=== PATIENT | male | born 1980 | race Asian ===

== ENCOUNTER 2019-10-15 01:52 | Inpatient (IN) | payer MEDICAID ==
[~2019-10-15] VITALS: Ht 172.7 cm; Wt 70.3 kg
[2019-10-15 02:28] LABS: Basophils # (auto) 0.3 10 ^3/uL (0-0.2); Basophils % (auto) 1.1 % (0.0-2.0); Eosinophils # (auto) 0.1 10 ^3/uL (0-0.8); Eosinophils % (auto) 0.5 % (0.0-7.0); Hematocrit 47.3 % (41.0-53.0); Hemoglobin 16.4 g/dL (13.5-17.5); Lymphocytes % (auto) 4.3 % (10.0-50.0); Mean Corpuscular Hemoglobin 33.1 pg (28.0-32.0); Mean Corpuscular Hgb Conc. 34.6 g/dL (32.0-36.0); Mean Corpuscular Volume 95.7 fL (80.0-100.0); Monocytes # (auto) 1.2 10 ^3/uL (0-1.3); Monocytes % (auto) 4.9 % (0.0-12.0); Neutrophils # (auto) 20.8 10 ^3/uL (1.6-8.6); Neutrophils % (auto) 89.2 % (37.0-80.0); Platelet Count (auto) 395 10^3/uL (140-450); Red Blood Cells 4.95 10^6/uL (4.5-5.90); Red Cell Distribution Width 12.7 % (11.8-14.3); White Blood Cell 23.4 10^3/uL (4.4-10.8)
[2019-10-15 02:42] LABS: Calcium 8.9 mg/dL (8.5-10.1)
[2019-10-15] MEDS ORDERED: SODIUM CHLORIDE 0.9% 1,000 ML IV ONE ×3 (02:45→04:00)
[2019-10-15] MEDS ORDERED: IOHEXOL 300 MG/ML 100ML BOTTLE IJ ONE (02:46)
[2019-10-15 02:51] LABS: BUN/Creatinine Ratio 4.1; Bilirubin, Total 3.3 mg/dL (0.2-1.0); Total Protein 7.4 g/dL (6.4-8.2)
[2019-10-15] MEDS ORDERED: ONDANSETRON HCL 4 MG/2 ML VIAL IV ONE (03:00)
[2019-10-15] MEDS ORDERED: MORPHINE SULFATE 4 MG/ML SYR/VIAL IV ONE (03:00)
[2019-10-15 03:44] LABS: Lactic Acid w/Reflex 2.2 mmol/L (0.4-2.0)
[2019-10-15] MEDS ORDERED: PIPERACILLIN-TAZOB 3.375GM 100 ML IV ONE ×2 (04:00→05:46)
[2019-10-15] MEDS ORDERED: VANCOMYCIN 1GM/250ML 250 ML IV ONE ×2 (04:00→04:25)
[2019-10-15 06:03] LABS: Urine Bacteria NONE SEEN /hpf (None Seen); Urine Blood TRACE /uL (Negative); Urine Specific Gravity 1.028 (1.001-1.035); Urine WBC <1 /hpf (0 - 3)
[2019-10-15] MEDS ORDERED: ACETAMINOPHEN 325 MG TAB PO PRN (06:30)
[2019-10-15] MEDS ORDERED: NITROGLYCERIN 0.4 MG SL TAB SL PRN (06:30)
[2019-10-15] MEDS ORDERED: MORPHINE SULF INJ 2 MG/ML SYRINGE 1ML IV PRN (06:30)
[2019-10-15] MEDS: ONDANSETRON HCL 4 MG/2 ML VIAL IV PRN ×2 (07:32→15:22)
[2019-10-15] MEDS: MORPHINE SULF INJ 2 MG/ML SYRINGE 1ML IV PRN ×2 (07:32→15:22)
--- NOTE | 2019-10-15 09:10 | NUR ---
CAME ON WC FROM ER, RECEIVED -PATIENT ALERT AND ORIENTED X4, NOT IN DISTRESS, CLEAR LS IN BILATERAL UPPER AND LOWER LUNG LOBES, RR=18, SAT=97%, DEEP BREATHING AND COUGHING ENCOURAGED, DEMONSTRATED AND VERBALIZED UNDERSTANDING, DENIED OF BREATH AND CHEST PAIN, HEAR R=86 ON TELE MONITOR, ABDOMEN SOFT WITH ACTIVE BS, LAST BM ON 10/14/19 REPORTED, SKIN INTACT, WARM TO TOUCH, RESTING ON BES, HEAD OF BED ELEVATED, BED ON LOW POSITION, RAILS UP X2, CALL LIGHT ON REACH, VS T=98.6, RR=18, SAT=97%, P=62, CI=946/69, PENDING GI AND SURGICAL CONSULT ORDERED, WILL CONTINUE MONITORING.
[2019-10-15] MEDS: ENOXAPARIN SOD 40 MG/0.4 ML SYRINGE SC SCH (10:19)
[2019-10-15 13:00] VITALS: BP 125/72
[2019-10-15 14:49] LABS: INR 1.06 (0.9-1.15); Partial Thromboplastin Time 26.6 sec (23.0-31.2)
[2019-10-15] MEDS: SODIUM CHLORIDE 0.9% 1,000 ML IV SCH ×3 (15:00→20:00)
[2019-10-15] MEDS: PIPERACILLIN-TAZOB 3.375GM 100 ML IV SCH ×2 (15:22→21:55)
[2019-10-15 17:00] VITALS: BP 121/68
--- NOTE | 2019-10-15 19:49 | NUR ---
NO HOME MEDICATION REPORTED THE PATIENT, NOT IN DISTRESS, RESTING ON BED HEAD OF BED ELEVATED, BED ON LOW POSITION, RAILS UP X2, CALL LIGHT ON REACH, REPORT WAS GIVEN TO THE EDITOR RN.
[2019-10-15 21:54] VITALS: BP 124/70
[2019-10-16] MEDS: SODIUM CHLORIDE 0.9% 1,000 ML IV SCH ×5 (01:00→21:10)
[2019-10-16] MEDS: MORPHINE SULF INJ 2 MG/ML SYRINGE 1ML IV PRN ×3 (03:21→17:39)
[2019-10-16 04:50] VITALS: BP 129/69
[2019-10-16] MEDS: PIPERACILLIN-TAZOB 3.375GM 100 ML IV SCH ×3 (06:17→21:10)
--- NOTE | 2019-10-16 07:55 | NUR ---
RECEIVED -PATIENT ALERT AND ORIENTED X4, NOT IN DISTRESS, CLEAR LS IN BILATERAL UPPER AND LOWER LUNG LOBES, RR=18, SAT=96%, DEEP BREATHING AND COUGHING ENCOURAGED, DEMONSTRATED AND VERBALIZED UNDERSTANDING, DENIED OF BREATH AND CHEST PAIN, HEART R=82, ABDOMEN SOFT WITH ACTIVE BS, KEEP NPO ORDERED, LAST BM 10/11/19 REPORTED, SKIN INTACT, WARM TO TOUCH, RESTING ON BES, HEAD OF BED ELEVATED, BED ON LOW POSITION, RAILS UP X2, CALL LIGHT ON REACH, GI AND SURGICAL CONSULT ORDERED, WILL CONTINUE MONITORING.
[2019-10-16 09:00] VITALS: BP 122/72
[2019-10-16] MEDS: ENOXAPARIN SOD 40 MG/0.4 ML SYRINGE SC SCH (10:57)
[2019-10-16] MEDS: ONDANSETRON HCL 4 MG/2 ML VIAL IV PRN ×2 (10:59→17:39)
[2019-10-16 13:00] VITALS: BP 116/68
[2019-10-16 17:00] VITALS: BP 118/69
--- NOTE | 2019-10-16 19:12 | NUR ---
NOT IN DISTRESS, RESTING ON BED HEAD OF BED ELEVATED, BED ON LOW POSITION, RAILS UP X2, CALL LIGHT ON REACH, REPORT WAS GIVEN TO THE FUR DRY CLEANER RN.
[2019-10-16 21:29] LABS: Basophils # (auto) 0.1 10 ^3/uL (0-0.2); Basophils % (auto) 0.4 % (0.0-2.0); Eosinophils # (auto) 0.1 10 ^3/uL (0-0.8); Eosinophils % (auto) 0.3 % (0.0-7.0); Hematocrit 44.1 % (41.0-53.0); Hemoglobin 14.4 g/dL (13.5-17.5); Lymphocytes # (auto) 1.1 10 ^3/uL (0.4-5.4); Lymphocytes % (auto) 5.8 % (10.0-50.0); Mean Corpuscular Hemoglobin 31.7 pg (28.0-32.0); Mean Corpuscular Hgb Conc. 32.5 g/dL (32.0-36.0); Mean Corpuscular Volume 97.6 fL (80.0-100.0); Monocytes # (auto) 1.2 10 ^3/uL (0-1.3); Monocytes % (auto) 6.6 % (0.0-12.0); Neutrophils # (auto) 15.8 10 ^3/uL (1.6-8.6); Neutrophils % (auto) 86.9 % (37.0-80.0); Platelet Count (auto) 327 10^3/uL (140-450); Red Blood Cells 4.52 10^6/uL (4.5-5.90); Red Cell Distribution Width 12.9 % (11.8-14.3); White Blood Cell 18.1 10^3/uL (4.4-10.8)
[2019-10-16 21:41] LABS: Albumin 3.4 g/dL (3.4-5.0); Calcium 8.1 mg/dL (8.5-10.1); Potassium 3.4 mmol/L (3.5-5.1)
[2019-10-16 21:44] LABS: BUN/Creatinine Ratio 8.2
[2019-10-16 22:00] VITALS: BP 115/65
[2019-10-17] MEDS: MORPHINE SULF INJ 2 MG/ML SYRINGE 1ML IV PRN ×2 (00:44→08:51)
[2019-10-17] MEDS: SODIUM CHLORIDE 0.9% 1,000 ML IV SCH ×2 (02:20→06:18)
[2019-10-17 05:00] VITALS: BP 118/70
[2019-10-17] MEDS: PIPERACILLIN-TAZOB 3.375GM 100 ML IV SCH ×3 (05:40→22:39)
[2019-10-17 06:00] LABS: Basophils # (auto) 0.1 10 ^3/uL (0-0.2); Basophils % (auto) 0.5 % (0.0-2.0); Eosinophils # (auto) 0.2 10 ^3/uL (0-0.8); Hematocrit 40.3 % (41.0-53.0); Hemoglobin 13.4 g/dL (13.5-17.5); Lymphocytes # (auto) 1.4 10 ^3/uL (0.4-5.4); Lymphocytes % (auto) 8.1 % (10.0-50.0); Mean Corpuscular Hemoglobin 32.4 pg (28.0-32.0); Mean Corpuscular Hgb Conc. 33.3 g/dL (32.0-36.0); Mean Corpuscular Volume 97.1 fL (80.0-100.0); Monocytes # (auto) 1.4 10 ^3/uL (0-1.3); Monocytes % (auto) 8.5 % (0.0-12.0); Neutrophils # (auto) 13.7 10 ^3/uL (1.6-8.6); Neutrophils % (auto) 81.9 % (37.0-80.0); Platelet Count (auto) 303 10^3/uL (140-450); Red Blood Cells 4.15 10^6/uL (4.5-5.90); Red Cell Distribution Width 12.7 % (11.8-14.3); White Blood Cell 16.8 10^3/uL (4.4-10.8)
[2019-10-17 06:30] LABS: Potassium 3.5 mmol/L (3.5-5.1)
[2019-10-17 06:39] LABS: Albumin 3.1 g/dL (3.4-5.0); BUN/Creatinine Ratio 8.9; Calcium 8.5 mg/dL (8.5-10.1); Total Protein 6.6 g/dL (6.4-8.2)
[2019-10-17 06:46] LABS: Cholesterol 123 mg/dL (< 200); HDL Cholesterol 41 mg/dL (40-59); LDL Cholesterol 73 mg/dL (< 100); Triglycerides 75 mg/dL (< 150)
[2019-10-17 09:00] VITALS: BP 125/69
[2019-10-17] MEDS: ENOXAPARIN SOD 40 MG/0.4 ML SYRINGE SC SCH (09:01)
--- NOTE | 2019-10-17 12:33 | NUR ---
DR. REICH ROUNDED ON PATIENT. PER MD, SURGERY TOMORROW AND KEEP NPO. NO CLEAR LIQUIDS TO BE GIVEN TODAY.
[2019-10-17 13:00] VITALS: BP 117/66
[2019-10-17] MEDS: D5W/SOD CHL 0.45%/KCL 20MEQ 1,000 ML IV SCH ×2 (14:00→21:05)
[2019-10-17 17:05] VITALS: BP 121/67
--- NOTE | 2019-10-17 19:50 | NUR ---
Opening Shift Note Received report and assumed care of patient. Patient is awake and alert. No signs or symptoms of distress noted. Instructed patient on plan of care and to call for assistance as needed. Educated patient regarding procedure scheduled for the morning. Will continue to monitor.
[2019-10-17 21:32] VITALS: BP 117/64
--- NOTE | 2019-10-17 22:34 | NUR ---
IV removal/insertion 20g IV to the right hand reddened. Discontinued IV with clean technique, catheter tip fully intact. Pressure dressing applied to site. NOTE:Inserted 20g to the Right forearm. Patient tolerated well.
[2019-10-18] MEDS: D5W/SOD CHL 0.45%/KCL 20MEQ 1,000 ML IV SCH ×3 (01:46→22:05)
[2019-10-18 05:00] VITALS: BP 124/77
[2019-10-18] MEDS: PIPERACILLIN-TAZOB 3.375GM 100 ML IV SCH ×3 (05:16→22:24)
[2019-10-18 06:40] LABS: Basophils # (auto) 0.1 10 ^3/uL (0-0.2); Basophils % (auto) 0.6 % (0.0-2.0); Eosinophils # (auto) 0.2 10 ^3/uL (0-0.8); Eosinophils % (auto) 1.6 % (0.0-7.0); Hematocrit 42.4 % (41.0-53.0); Hemoglobin 14.1 g/dL (13.5-17.5); Lymphocytes # (auto) 1.5 10 ^3/uL (0.4-5.4); Lymphocytes % (auto) 11.6 % (10.0-50.0); Mean Corpuscular Hemoglobin 32.4 pg (28.0-32.0); Mean Corpuscular Hgb Conc. 33.1 g/dL (32.0-36.0); Mean Corpuscular Volume 97.8 fL (80.0-100.0); Monocytes % (auto) 8.2 % (0.0-12.0); Neutrophils # (auto) 9.9 10 ^3/uL (1.6-8.6); Platelet Count (auto) 344 10^3/uL (140-450); Red Blood Cells 4.34 10^6/uL (4.5-5.90); Red Cell Distribution Width 12.6 % (11.8-14.3); White Blood Cell 12.7 10^3/uL (4.4-10.8)
--- NOTE | 2019-10-18 06:50 | NUR ---
Patient off unit Patient taken down for procedure. Informed OR nurse of incomplete administration of Zosyn due to patient taken down to OR.
[2019-10-18] MEDS ORDERED: POVIDONE IODINE 10 % TOPICAL OINT 30GM TOP ONE (06:55)
[2019-10-18 07:15] LABS: Albumin 3.3 g/dL (3.4-5.0); BUN/Creatinine Ratio 4.6; Bilirubin, Total 0.8 mg/dL (0.2-1.0); Calcium 8.5 mg/dL (8.5-10.1); Total Protein 7.5 g/dL (6.4-8.2)
--- NOTE | 2019-10-18 07:30 | NUR ---
Opening Shift Note Assumed patient care from NOC RN. Patient currently off unit at pre op.
--- NOTE | 2019-10-18 07:38 | NUR ---
Critical Lab Value Critical lab value received by Virgilio. Will notify
[2019-10-18 07:39] LABS: Potassium 2.6 mmol/L (3.5-5.1)
--- NOTE | 2019-10-18 07:41 | NUR ---
Called Left message for Dr. Acevedo regarding critical lab value.
[2019-10-18] MEDS ORDERED: POTASSIUM CHL 20MEQ/100ML 100 ML IV STA (07:44)
[2019-10-18] MEDS ORDERED: POTASSIUM CHL 20MEQ/100ML 100 ML IV ONE ×2 (07:49→09:44)
--- NOTE | 2019-10-18 08:01 | NUR ---
MD Called Received call back from Dr. Acevedo. New orders received. Pre Op RN notified.
[2019-10-18] MEDS ORDERED: ceFAZolin 1GM/50ML 50 ML IV ONE (08:18)
[2019-10-18] MEDS ORDERED: MEPERIDINE HCL (25 MG/ML) 1ML VIAL ONE (09:58)
[2019-10-18] MEDS ORDERED: MIDAZOLAM HCL 1MG/1ML-2 ML VIAL ONE (09:58)
[2019-10-18] MEDS ORDERED: fentaNYL CITRATE 100 MCG/2 ML VL ONE (09:58)
[2019-10-18] MEDS ORDERED: PROPOFOL 10 MG/ML 20 ML IV ONE (09:59)
[2019-10-18] MEDS ORDERED: DexAMETHasone SOD PHOS 10MG/1ML VIAL INJ ONE (09:59)
[2019-10-18] MEDS ORDERED: ROCURONIUM 10MG/ML 10ML VIAL IV ONE (10:00)
[2019-10-18] MEDS: ENOXAPARIN SOD 40 MG/0.4 ML SYRINGE SC SCH (10:00)
[2019-10-18] MEDS ORDERED: NEOSTIGMINE 1 MG/ML INJ (10mg/10ML VIAL) ONE (10:40)
[2019-10-18] MEDS ORDERED: GLYCOPYRROLATE 0.2 MG/ML 1ML VIAL ONE (10:41)
[2019-10-18] MEDS ORDERED: ONDANSETRON HCL 4 MG/2 ML VIAL ONE (10:53)
[2019-10-18] MEDS ORDERED: MIDAZOLAM HCL 1MG/1ML-2 ML VIAL IV PRN (11:15)
[2019-10-18] MEDS ORDERED: HYDROmorphone HCL 2 MG/ML VL IV PRN (11:15)
[2019-10-18] MEDS ORDERED: LABETALOL HCL 5 MG/ML 4ML SYRINGE IV PRN (11:15)
[2019-10-18] MEDS ORDERED: KETOROLAC TROMETH 30 MG/ML 1ML VIAL IV ONE (11:15)
[2019-10-18] MEDS ORDERED: ePHEDrine SULFATE 50 MG/ML AMP IV PRN (11:15)
[2019-10-18] MEDS ORDERED: MORPHINE SULFATE 4 MG/ML SYR/VIAL IV PRN (11:15)
[2019-10-18] MEDS ORDERED: ONDANSETRON HCL 4 MG/2 ML VIAL IV PRN (11:15)
--- NOTE | 2019-10-18 11:50 | NUR ---
Report Received Post Op report from JAMIE Escalante.
--- NOTE | 2019-10-18 12:10 | NUR ---
Patient Arrived to Unit/MD at Bedside Patient Arrived to Unit. Dr. Acevedo at bedside discussing plan of care with patient. Patient is AOx4, respirations even and unlabored, no signs of distress. Safety precautions in place, call light within reach, patient encouraged to call PRN. Will continue to monitor.
--- NOTE | 2019-10-18 12:12 | NUR ---
MD Called Dr. Willett returned call, per Dr. Willett, patient is not clear for discharge at this time.
[2019-10-18 13:46] VITALS: BP 140/91
--- NOTE | 2019-10-18 14:23 | NUR ---
assessment Patient is a 39 year old male who is alert and oriented. Patients cognitive abilities are intact. Prior to admission patient lived home with family and functioned independently. Patient informed me he is able to care for his own ADLs. Per patient he will return home to his prior living arrangements post discharge and family will transport him home. Patient had a cholecystectomy. Patient has no post discharge needs identified at this time. I informed patient he has a right to speak to a social service worker regarding all care. I informed patient he has a right to participate in any and all discharge planning. Patient does not have a POA and advanced directive. I have offered patient information on POA and advanced directives. I informed the patient the advantages and benefits of having an Advanced Directive. Patient verbalized understanding and agreed to discharge plan. Addendum: 10/18/19 at 1426 by Surekha SHARIF Amended: Links added.
--- NOTE | 2019-10-18 14:41 | NUR ---
Nutrition Assessment Notes Please refer to link for full assessment notes. Est Energy needs: 6452-7012 kcals (25-30 kcal/kgBW) Est Protein needs: 53-67 gms/day (0.8-1.0 gm/kgBW) Will continue to monitor and reassess prn. Addendum: 10/18/19 at [address] Amended: Links added.
[2019-10-18 17:00] VITALS: BP 121/74
--- NOTE | 2019-10-18 19:44 | NUR ---
Opening Shift Note Received report and assumed care of patient. Patient is awake and alert. No signs or symptoms of distress noted. Instructed patient on plan of care and to call for assistance as needed. Will continue to monitor.
[2019-10-18 21:20] VITALS: BP 118/72
[2019-10-19 05:08] VITALS: BP 130/76
[2019-10-19 05:24] LABS: Basophils # (auto) 0 10 ^3/uL (0-0.2); Basophils % (auto) 0.2 % (0.0-2.0); Eosinophils # (auto) 0 10 ^3/uL (0-0.8); Hemoglobin 12.4 g/dL (13.5-17.5); Lymphocytes # (auto) 0.8 10 ^3/uL (0.4-5.4); Lymphocytes % (auto) 10.8 % (10.0-50.0); Mean Corpuscular Hemoglobin 32.4 pg (28.0-32.0); Mean Corpuscular Hgb Conc. 33.4 g/dL (32.0-36.0); Mean Corpuscular Volume 96.9 fL (80.0-100.0); Monocytes # (auto) 0.5 10 ^3/uL (0-1.3); Monocytes % (auto) 5.8 % (0.0-12.0); Neutrophils # (auto) 6.4 10 ^3/uL (1.6-8.6); Neutrophils % (auto) 83.2 % (37.0-80.0); Platelet Count (auto) 322 10^3/uL (140-450); Red Blood Cells 3.82 10^6/uL (4.5-5.90); Red Cell Distribution Width 12.2 % (11.8-14.3); White Blood Cell 7.7 10^3/uL (4.4-10.8)
[2019-10-19 05:42] LABS: Albumin 2.8 g/dL (3.4-5.0); Calcium 8.6 mg/dL (8.5-10.1); Potassium 3.8 mmol/L (3.5-5.1)
[2019-10-19 05:45] LABS: BUN/Creatinine Ratio 6.7; Bilirubin, Total 0.5 mg/dL (0.2-1.0); Total Protein 6.2 g/dL (6.4-8.2)
[2019-10-19] MEDS: D5W/SOD CHL 0.45%/KCL 20MEQ 1,000 ML IV SCH (06:02)
[2019-10-19] MEDS: PIPERACILLIN-TAZOB 3.375GM 100 ML IV SCH ×2 (06:06→13:07)
--- NOTE | 2019-10-19 07:30 | NUR ---
Opening Shift Note Assumed patient care from NOC RN. Patient currently sitting up in bed, no signs of distress at this time. Respirations even and unlabored. Will continue to monitor.
[2019-10-19 08:00] VITALS: BP 127/80
--- NOTE | 2019-10-19 08:15 | NUR ---
Diet Patient tolerated diet well. No nausea or vomiting at this time. Per Dr. Willett order will advance diet for lunch.
--- NOTE | 2019-10-19 09:00 | NUR ---
IS Patient encouraged to use incentive spirometer and re-educated on benefits. Patient returned demonstrations: 1500x2. Patient encouraged to use 10 times per hour. Patient verbalized understanding.
[2019-10-19] MEDS: ENOXAPARIN SOD 40 MG/0.4 ML SYRINGE SC SCH (09:52)
[2019-10-19 12:00] VITALS: BP 117/73
[2019-10-19] MEDS ORDERED: HYDR-4833 PO (12:57)
[2019-10-19] MEDS ORDERED: METR500T PO (12:57)
[2019-10-19] MEDS ORDERED: ACE325T PO (12:57)
[2019-10-19] MEDS ORDERED: LEVO-28 PO (12:57)
[2019-10-19] MEDS ORDERED: metroNIDAZOLE 500 MG TAB PO ONE (13:00)
[2019-10-19] MEDS ORDERED: levoFLOXacin 500 MG TAB PO ONE (13:00)
[2019-10-19 14:56] VITALS: BP 117/73
[2019-10-19 16:00] VITALS: BP 111/71
--- NOTE | 2019-10-19 17:00 | NUR ---
Discharge Discharge instructions given as ordered. Encourage to follow up with PMD as instructed. All questions and concerns addressed. Patient verbalized understanding. Medication reconciliation form completed and copy given to patient. IV removed with catheter intact, pressure dressing applied. Patient taken to vehicle via wheelchair with all personal belongings, accompanied by staff and family member. No distress noted at time of departure. Reviewed discharge packet with patient. Patient instructed to call to set follow up appointments with primary MD, GI, and surgeon. Patient provided with contact information. Patient also educated on incision care, education materials provided. Patient verbalized understanding.
== END 2019-10-19 17:00 | disposition home or self-care (01) | DRG 263 ==
LOC: ER 01:59 → OVERFLOW 02:00 → WEST WING 09:00
PROVIDERS: ADMIT Internal Medicine; ATTEND Internal Medicine
PROC: 0FT44ZZ Resection of Gallbladder, Percutaneous Endoscopic Approach (ICD-10-PCS; principal; 2019-10-18 10:00)
DX: K80.64 Calculus of gallbladder and bile duct with chronic cholecystitis without obstruction (principal); K85.10 Biliary acute pancreatitis without necrosis or infection; Z79.899 Other long term (current) drug therapy
CPT/HCPCS: 36415; 74177; 74181; 76705; 80053; 80061; 81001; 82150; 83605; 83690; 84132; 85025; 85610; 85730; 86850; 86900; 86901; 87040; 87086; 93005; G0378; J0690; J1100; J2250; J2405; J2543; J2704; J3480

== ENCOUNTER 2019-11-25 13:18 | Emergency (ER) | payer MEDICAID ==
[~2019-11-25] VITALS: Ht 170.2 cm; Wt 63.5 kg
[~2019-11-25 13:18] MED LIST: ACE325T PO; HYDR-4833 PO; LEVO-28 PO; METR500T PO
[2019-11-25 16:28] LABS: Basophils # (auto) 0.1 10 ^3/uL (0-0.2); Basophils % (auto) 0.4 % (0.0-2.0); Eosinophils # (auto) 0 10 ^3/uL (0-0.8); Eosinophils % (auto) 0.1 % (0.0-7.0); Hematocrit 47.4 % (41.0-53.0); Hemoglobin 16.2 g/dL (13.5-17.5); Lymphocytes # (auto) 0.9 10 ^3/uL (0.4-5.4); Lymphocytes % (auto) 7.1 % (10.0-50.0); Mean Corpuscular Hemoglobin 32.6 pg (28.0-32.0); Mean Corpuscular Hgb Conc. 34.2 g/dL (32.0-36.0); Mean Corpuscular Volume 95.4 fL (80.0-100.0); Monocytes # (auto) 0.3 10 ^3/uL (0-1.3); Monocytes % (auto) 2.5 % (0.0-12.0); Neutrophils % (auto) 89.9 % (37.0-80.0); Nucleated Red Blood Cells % 0.1 %; Platelet Count (auto) 343 10^3/uL (140-450); Red Blood Cells 4.96 10^6/uL (4.5-5.90); Red Cell Distribution Width 12.9 % (11.8-14.3); White Blood Cell 13.4 10^3/uL (4.4-10.8)
[2019-11-25 16:42] LABS: Albumin 4.3 g/dL (3.4-5.0); Anion Gap 9 (5-15); BUN/Creatinine Ratio 7.9; Blood Urea Nitrogen 5 mg/dL (7-18); Calcium 10.3 mg/dL (8.5-10.1); Carbon Dioxide 25 mmol/L (21-32); Chloride 98 mmol/L (98-107); GFR African American 183 mL/min; GFR Non-African American 151 mL/min; Glucose 131 mg/dL (74-106); Magnesium 2.5 mg/dL (1.6-2.6); Potassium 3.3 mmol/L (3.5-5.1); Sodium 132 mmol/L (136-145)
[2019-11-25 16:51] LABS: Alanine Aminotransferase 39 U/L (16-61); Alkaline Phosphatase 135 U/L (45-117); Aspartate Aminotransferase 18 U/L (15-37); Bilirubin, Total 0.8 mg/dL (0.2-1.0); Total Protein 7.8 g/dL (6.4-8.2)
[2019-11-25] MEDS ORDERED: SODIUM CHLORIDE 0.9% 1,000 ML IV ONE (17:15)
[2019-11-25] MEDS ORDERED: cefTRIAXone 1GM/50ML D5W 50 ML IV ONE (17:15)
[2019-11-25 17:28] LABS: INR 0.96 (0.9-1.15); Partial Thromboplastin Time 25.4 sec (23.0-31.2)
[2019-11-25] MEDS ORDERED: POTASSIUM CHL 20 Meq TABLET PO ONE (17:30)
[2019-11-25] MEDS ORDERED: ALBU108A5 IN (19:47)
[2019-11-25] MEDS ORDERED: NAS17NSL (19:47)
[2019-11-25] MEDS ORDERED: IOHEXOL 350 MG/ML 100ML IJ ONE (20:50)
[2019-11-25 23:40] VITALS: BP 132/87
[2019-11-26] MEDS ORDERED: LORazepam 0.5 MG TAB ONE (00:13)
[2019-11-26] MEDS ORDERED: LORazepam 0.5 MG TAB PO ONE (00:30)
== END 2019-11-26 01:56 | disposition home or self-care (01) ==
LOC: ER 13:18 → EDBD 13:18 → ER 11-26 01:56
DX: J18.9 Pneumonia, unspecified organism (principal); Z20.828 Contact with and (suspected) exposure to other viral communicable diseases
CPT/HCPCS: 36415; 36600; 70490; 71045; 71275; 80053; 82805; 83735; 84484; 85025; 85379; 85610; 85730; 87426; 96365; 96366; 99285; J0696; J7030; Q9967

== ENCOUNTER 2019-12-18 09:11 | Emergency (ER) | payer MEDICAID ==
[~2019-12-18] VITALS: Ht 172.7 cm; Wt 65.8 kg
[~2019-12-18 09:11] MED LIST changes: +ALBU108A5 IN; +NAS17NSL
[2019-12-18] MEDS ORDERED: IOHEXOL 300 MG/ML 100ML BOTTLE IJ ONE (10:01)
[2019-12-18 10:21] LABS: Basophils # (auto) 0.1 10 ^3/uL (0-0.2); Basophils % (auto) 1.1 % (0.0-2.0); Eosinophils # (auto) 0.1 10 ^3/uL (0-0.8); Eosinophils % (auto) 1.2 % (0.0-7.0); Hematocrit 41.7 % (41.0-53.0); Hemoglobin 14.1 g/dL (13.5-17.5); Lymphocytes # (auto) 1.7 10 ^3/uL (0.4-5.4); Mean Corpuscular Hemoglobin 32.5 pg (28.0-32.0); Mean Corpuscular Hgb Conc. 33.8 g/dL (32.0-36.0); Mean Corpuscular Volume 96.1 fL (80.0-100.0); Monocytes # (auto) 0.5 10 ^3/uL (0-1.3); Monocytes % (auto) 7.9 % (0.0-12.0); Neutrophils # (auto) 4.3 10 ^3/uL (1.6-8.6); Neutrophils % (auto) 64.8 % (37.0-80.0); Nucleated Red Blood Cells % 0.1 %; Platelet Count (auto) 283 10^3/uL (140-450); Red Blood Cells 4.34 10^6/uL (4.5-5.90); Red Cell Distribution Width 12.8 % (11.8-14.3); White Blood Cell 6.7 10^3/uL (4.4-10.8)
[2019-12-18 10:36] LABS: Albumin 3.6 g/dL (3.4-5.0); Calcium 8.2 mg/dL (8.5-10.1); Potassium 3.6 mmol/L (3.5-5.1)
[2019-12-18 10:39] LABS: BUN/Creatinine Ratio 5.9; Bilirubin, Total 0.8 mg/dL (0.2-1.0); Total Protein 6.5 g/dL (6.4-8.2)
[2019-12-18 11:42] LABS: Urine Bacteria NONE SEEN /hpf (None Seen); Urine Blood Negative /uL (Negative); Urine Specific Gravity 1.009 (1.001-1.035); Urine WBC 1 /hpf (0 - 3)
[2019-12-18 12:06] VITALS: BP 122/82
== END 2019-12-18 13:25 | disposition home or self-care (01) ==
LOC: ER 09:11
DX: R06.00 Dyspnea, unspecified (principal); Z87.891 Personal history of nicotine dependence; Z79.899 Other long term (current) drug therapy
CPT/HCPCS: 36415; 71045; 71260; 74177; 80053; 81001; 83880; 85025; 85379; 99285; Q9967; 93005

== ENCOUNTER 2020-09-02 12:13 | Emergency (ER) | payer MEDICAID ==
[~2020-09-02] VITALS: Ht 172.7 cm; Wt 70.3 kg
[~2020-09-02 12:13] MED LIST changes: -ACE325T PO; +ACET325T10 PO
[2020-09-02 12:40] VITALS: BP 154/88
[2020-09-02] MEDS ORDERED: ACETAMINOPHEN 325 MG TAB PO ONE (13:00)
[2020-09-02 13:04] LABS: Urine Bacteria NONE SEEN /hpf (None Seen); Urine Blood 3+ /uL (Negative); Urine Specific Gravity 1.013 (1.001-1.035); Urine WBC 54 /hpf (0 - 3)
[2020-09-02] MEDS ORDERED: cefTRIAXone SOD 1,000 MG VL IM ONE (13:30)
[2020-09-02] MEDS ORDERED: ACETAMINOPHEN 500 MG TAB PO ONE (13:30)
== END 2020-09-02 15:27 | disposition home or self-care (01) ==
LOC: ER 12:13
DX: N39.0 Urinary tract infection, site not specified (principal); Z90.49 Acquired absence of other specified parts of digestive tract; Z79.2 Long term (current) use of antibiotics; Z79.899 Other long term (current) drug therapy
CPT/HCPCS: 81001; 96372; 99283; J0696